=== PATIENT | male | born 1945 | race Caucasian/White ===

== ENCOUNTER 2019-08-16 11:09 | Inpatient (IN) | payer MEDICARE, OTHER, SELFPAY ==
[2019-08-12 09:29] VITALS: BMI 25.7
[2019-08-16] VITALS (21 sets, daily range): BP systolic 83–140; BP diastolic 51–76; PULSE 68–105; RESP 10–20; TEMP 36–37.1; O2SAT 91–100; BMI 25.4
--- NOTE | 2019-08-16 | PATH_ITS ---
[facility] Accession Number: [id number] . 01 Material submitted: . PART A: lymph node - RIGHT PELVIC LYMPH NODES PART B: lymph node - LEFT PELVIC LYMPH NODES PART C: prostate - PROSTATE . 01 Clinical history: . C: (SUTURE PLACED ANTERIOR REAPPROXIMATING MARGIN) . 02 Diagnosis: A. Right Pelvic Lymph Nodes, Excision: Four lymph nodes negative for carcinoma. . B. Left Pelvic Lymph Nodes, Excision: Two lymph nodes negative for carcinoma. . C. Prostate, Radical Prostatectomy: Prostatic adenocarcinoma; see Cancer Case Summary. . Surgical Pathology Cancer Case Summary-Prostate Gland. Procedure: Radical prostatectomy. Prostate Size: Weight: 44 grams. Size: 5.2 x 5.0 x 3.5 cm. Histologic Type: Acinar adenocarcinoma. Histologic Grade: Grade Group 5 (Melinda score 4+5=9). Percentage of Melinda Patterns 4 and 5. Percentage of pattern 4: 60% Percentage of pattern 5: 20% Intraductal Carcinoma: Not identified. Tumor Quantitation: Estimated percentage of prostate involved by tumor: 10%. Extraprostatic Extension: Not identified. Urinary Bladder Neck Invasion: Not identified. Seminal Vesical Invasion: Not identified. Lymphovascular Invasion: Not identified. Perineural Invasion: Present. Margins: Uninvolved by invasive carcinoma. Treatment Effect: No known presurgical therapy. Regional Lymph Nodes: Number of lymph nodes involved: 0. Number of lymph nodes examined: 6. Pathologic Stage Classification (pTNM, AJCC 8th Edition): Primary Tumor: pT2. Regional Lymph Nodes: pN0. Additional Pathologic Findings: High-grade prostatic intraepithelial neoplasia (PIN). V 08/23/2019 1346 Local . 02 Electronically signed: . Andrei Oropeza MD, PhD, Pathologist NPI- [id number] . 01 Gross description: . (A) Received in formalin, labeled right pelvic lymph node, is a piece of garcia-yellow rubbery adipose tissue (4.5 x 2.0 x 0.7 cm) containing an apparent cluster of lymph nodes (3.7 x 1.7 x 0.5 cm in aggregate, ranging 0.4 x 0.4 x 0.4 cm - 2.0 x 0.6 x 0.3 cm). Section code: (A1-A3) one bisected lymph node in each; (A4-A5) one serially sectioned lymph node; (A6) remaining adipose tissue. Specimen is entirely submitted. (B) Received in formalin, labeled left pelvic lymph nodes, is a piece of garcia-yellow rubbery adipose tissue (4.8 x 1.8 x 0.7 cm) containing an apparent cluster of lymph nodes (4.7 x 1.5 x 0.4 cm in aggregate, ranging 1.2 x 0.4 x 0.2 cm - 4.0 x 1.0 x 0.4 cm). Section code: (B1) one bisected lymph node; (B2-B3) one serially sectioned lymph node; (B4) remaining adipose tissue. Specimen entirely submitted. (C) Received in formalin, labeled prostate, suture placed anterior reapproximating the margins, is a prostate gland (44 grams, 3.5 cm AP, 5.2 cm SI, 5.0 cm ML) with attached seminal vesicles (right: 3.5 x 1.7 x 0.3 cm; left: 2.9 x 1.2 x 0.5 cm). Two sutures indicate the anterior approximate margin. The exterior surface is irregular with diffuse adhesions. The parenchyma is garcia-jimenes focally pale and cystic. No definitive nodules, masses, or lesions are identified. Seminal vesicles are spongy and unremarkable. The specimen is serially sectioned into eight slices proximal to distal. Ink code: orange-right anterior; blue-left anterior; black-right posterior; purple-left posterior. Section code: (C1-C2) base margin, perpendicularly sectioned, entirely submitted; (C3-C4) seminal vesicle and base junction; (C5-C8) slice #2, entirely submitted; (C9-C12) slice #5, entirely submitted; (C13-C16) slice #7, entirely submitted; (C17) right seminal vesicle, technical service representative serial section; (C18) left seminal vesicle, technical service representative serial section; (C19-C20) apical margin, perpendicularly sectioned, entirely submitted. Additional sections: (C21-C23) slice #6, entirely submitted; (C24-C26) slice #8, entirely submitted. ([id number])([id number]) /[facility] 08/20/2019 0953 Local . 02 Pathologist provided ICD-10: C61 . 02 CPT . 632918, 280244, 418730 Performed at: 01 [facility] [address] [id number] MD Almas Gallardo MD Phone: [phone] Performed at: 02 [facility] [address] [place] [id number] MD Zonia Alvarado MD Phone: [phone]
[2019-08-16] MEDS: GABAPENTIN 300 MG CAPSULE PO (12:02)
[2019-08-16] MEDS: LACTATED RINGERS 1,000 ML 42 ML IV ×5 (12:15→18:00)
[2019-08-16 12:19] LABS: Blood Urea Nitrogen 15 mg/dL (9-20); Calcium 9.5 mg/dL (8.4-10.2); Carbon Dioxide 25 mmol/L (22-32); Chloride 107 mmol/L (98-107); Estimated Glomerular Filt Rate > 60.0 mL/min (>60); Glucose 109 mg/dL (80-110); HEMOLYSIS < 15 (0-50); Potassium 4.1 mmol/L (3.4-5.1); Sodium 141 mmol/L (137-145)
--- NOTE | 2019-08-16 13:09 | PM.PREOP ---
Pre-operative Note Interval Note History & Physical reviewed/Exam performed by Physician: Yes Changes to H&P: No H&P completed within 30 days and has changed as indicated here:: History and physical examination on file is unchanged after review.
[2019-08-16 13:24] LABS: Hematocrit 37.8 % (41-53); Hemoglobin 13.3 g/dL (13.5-17.5)
[2019-08-16] MEDS: CEFAZOLIN 2 GM/100 ML FROZ.PIGGY IV (13:24)
--- NOTE | 2019-08-16 14:21 | SUR.OPER ---
Supine on padded OR bed, head on pillow, arms secured on padded arm boards at <90 degrees abduction, legs uncrossed, safety belt at thigh, pillow under knees/thighs, gel pad under heels.
[2019-08-16] MEDS: ACETAMINOPHEN IV 1,000 MG/100 ML VIAL 400 MG IV (14:30)
--- NOTE | 2019-08-16 15:10 | SUR.OPER ---
delay due to late MD and pre-op labs not being drawn
[2019-08-16] MEDS: ALBUMIN HUMAN 25 GM/100 ML VIAL IV ×2 (15:45→17:32)
[2019-08-16] MEDS: BUPIVACAINE LIPOSOME 266 MG/20 ML VIAL INJ (17:31)
--- NOTE | 2019-08-16 17:54 | P.OP_ITS ---
Operative Date/Time/Diagnoses Date of procedure: 08/16/19 Time of procedure: 17:54 Pre-op diagnosis: Grade group 5 adenocarcinoma of the prostate Post-op diagnosis: same Procedure & Clinicians Same procedure as scheduled: Yes
--- NOTE | 2019-08-16 17:54 | PM.OP.1 ---
Operative Date/Time/Diagnoses Date of procedure: 08/16/19 Time of procedure: 17:54 Pre-op diagnosis: Grade group 5 adenocarcinoma of the prostate Post-op diagnosis: same Procedure & Clinicians Same procedure as scheduled: Yes
--- NOTE | 2019-08-16 17:55 | P.OP_ITS ---
Operative Date/Time/Diagnoses Date of procedure: 08/16/19 Time of procedure: 17:55 Post-op diagnosis: same Procedure & Clinicians Procedure: Radical retropubic prostatectomy and bilateral pelvic lymphadenectomy Same procedure as scheduled: Yes Indications: [place] group 5 adenocarcinoma the prostate Surgeon: Caty Giang Brand Manager: Tatiana Benedict Click Yes if Unassisted: No Anesthesia Type: General, Spinal and Local Operative Notes Findings: 1. There was extensive fibrosis and adhesions of the midline lower abdominal wall. 2. There was extensive yeison prostatic fibrosis and adhesions to the empty interior abdominal wall, posterior pubic symphysis and rectal wall. 3. Bilateral pelvic lymph nodes were palpably and visibly benign. 4. The consistency of the prostate was firm to indurated but no visible evidence of obvious extra prostatic extension. Closure Type: primary Specimen(s): other (1. Bilateral pelvic lymph nodes. 2. Prostate and attached seminal vesicles. ) Applied: catheter (# 22 Surinamese silicone catheter) Estimated Blood Loss (mL): 800 Blood products transfused: none Tourniquet time (min): 0 Procedure in detail: The patient was positioned in supine and administered general anesthesia of following successful placement of Duramorph spinal anesthetic. The lower abdomen genitalia and groin were then prepped and draped in sterile fashion. A 22 Surinamese Gonzalez catheter was then inserted and the lower urinary tract. A midline infraumbilical incision was then performed that included the pre-existing wide midline scar. It was excised at the cutaneous level with cautery and sharp dissection. Continued meticulous sharp wound cautery and blunt dissection were undertaken to divide the mid midline abdominal wall structures. The space of Retzius was then entered and careful blunt dissection was performed to expose the lateral pelvic sidewalls. The external iliac vein was identified on the right side in the overlying adventitia to the connective tissue was carefully divided using blunt and cautery technique the liudmila packet was then swept from the lateral pelvic sidewall using blunt dissection. The obturator nerve and vasculature were identified and isolated and preserved. The lymph node packet was then dissected free and divided using the cautery technique from the anterolateral pelvic sidewall and then proximally at the bifurcation of the iliac veins. The specimen was then labeled right side and handed off label to to the side side of procurement. The same steps maneuvers were performed on the left side and. The prostate and bladder neck interface were then identified and careful blunt and cautery dissection were then used to enter the bladder at this point continued same technique dissection was carried out laterally around the bladder neck. Finally the posterior bladder neck was from the prostatic base and the space was entered in which the seminal vesicles and bilateral vas were identified and. Using meticulous and painstaking blunt and sharp dissection with application of metallic surgical clips where indicated for hemostasis these structures were eventually mobilized. The lateral pedicles were partially mobilized and divided using the same technique the dense adhesions against the pubic symphysis were then addressed and day using again blunt sharp cautery technique is indicated or performed a painstaking matter finally an appropriate plane was developed in the urethra was identified and isolated and secured with the large Jewel clamp the remainder of the pedicle was then divided on each side by sequentially in some cases dividing it with the ligature device and some cases using doubly applied metallic clips finally the adhesions of the rectal wall were carefully identified and addressed and again a painstaking matter appropriate plane was carefully followed. Final inspection of the rectal wall revealed no evidence of undue bleeding or stool the pelvis was then filled with water and observed for approximately 5 minutes there were no and manipulation of the rectum revealed no evidence of gas bubbles. The fluid was then drained completely. Now the bladder neck was repaired in a tennis racquet fashion using a running 2 0 Vicryl the surrounding mucosa was then effaced using a Lembert technique with 4 0 chromic. A Jose Maria sound was then positioned in the urethra so as to visualize the membranous portion. Two 0 Vicryl sutures were placed at 2:00 a.m. 4:00 a.m. 8:00 a.m. and 10:00 a.m. through the urethral stump. The same suture were then brought through the corresponding locations at the neobladder neck. The [place] Maria sound was then removed and a 22 Surinamese silicone catheter was advanced into the lower urinary tract and then the tip advanced into the bladder through the alec bladder neck under direct visualization the balloon was then inflated to 15 cc gentle traction was then applied to reapproximate the bladder neck and urethral stump anastomotic sutures were then tied down individually. The bladder was then irrigated clear. A 15 Surinamese Alden drain was then brought through separate stab incision to the right of the midline incision. Next the drain was sutured to the skin. The midline rectus fascia was closed using running 0 PDS the subcutaneous layer was then reapproximated using a running 3 0 Vicryl finally the skin was reapproximated using a running subcuticular of 4 0 Monocryl. Thin strips of Telfa were applied to the midline incision and a sq to the drain site op site was then applied to the midline incision and the drain site for Bioclusive closure closure dressing the Gonzalez was attached to gravity drainage. The Alden drain was attached to a bulb self suction. The patient was then transferred to a rflorence and transported to recovery in stable condition. Complications: none Post-operative Condition: stable Disposition: PACU Plan for aftercare: Admission as inpatient.
[2019-08-16 18:49] LABS: Hematocrit 20.4 % (41-53)
--- NOTE | 2019-08-16 19:03 | SUR.PHASEI ---
HCT 20.4. Dr. Kingston notified, orders pending. VS stable.
--- NOTE | 2019-08-16 19:12 | SUR.PHASEI ---
Report for [facility]
--- NOTE | 2019-08-16 20:22 | SUR.PHASEI ---
1914 patient transferred to the floor with jacket and belongings bag. VS stable. IV saline locked. Report given to Corinna. Scant amt of pink drainage to abd dressing. Alden drain and walters patent.
[2019-08-17] VITALS (14 sets, daily range): BP systolic 98–137; BP diastolic 51–63; PULSE 67–105; RESP 16–17; TEMP 36.4–37.9; O2SAT 95–100
--- NOTE | 2019-08-17 01:03 | PC.NURSE ---
1st unit of PRBC's transfused, without any S&S of transfusion reactions. 2nd unit started @ 0015 infusing @ 75 cc. After 15 mins.VSS Blood pressure 131/61 HR. 97 , RR 16 & Temp. 98.2. Denies any S&S of any reactions; PICKETT, pruritus, nausea & other symptoms, increased transfusion rate to 135 cc/hour. Will monitor.
--- NOTE | 2019-08-17 02:46 | PC.NURSE ---
Notified Dr. Kingston to verify if she want to transfuse 2 units of PRBC's or 4 units. She ordered to transfuse 2 units & draw H&H after second unit & call her with the results. Will monitor.
[2019-08-17] MEDS: LACTATED RINGERS 1,000 ML 120 ML IV (03:23)
[2019-08-17 03:59] LABS: Hemoglobin 9.2 g/dL (13.5-17.5)
[2019-08-17 04:00] LABS: Hematocrit 26.6 % (41-53)
--- NOTE | 2019-08-17 04:12 | PC.NURSE ---
DR. Kingston notified with the latest H&H results of 9.2 & 26.6 last VS BP 108/58, HR, 76, RR [address] Temp.99.2. Dr. Kingston ordered not to transfuse the 3rd unit & PRBC's & She states Dr. Giang will assess him in the morning. Will cont. POC & monitor.
[2019-08-17] MEDS: KETOROLAC 10 MG TABLET PO ×2 (05:26→22:12)
--- NOTE | 2019-08-17 07:42 | PM.PN.1 ---
Subjective Subjective Date Patient Seen: 08/17/19 Time Patient Seen: 07:43 Interval history: The patient had a uneventful night. He was transfused 2 units of packed RBCs for immediate postoperative hematocrit of 20. His vital signs remained stable. Exam Vital Signs (past 8 hours): - 08/17/19 00:00 08/17/19 00:23 08/17/19 00:29 Temperature 98.3 F 98.3 F 98.2 F Pulse Rate 95 H 95 H 97 H Respiratory Rate 16 16 16 Blood Pressure 98/51 L 98/51 L 137/61 Pulse Oximetry 98 08/17/19 03:02 08/17/19 03:10 08/17/19 03:15 Temperature 99.2 F 99.2 F Pulse Rate 76 76 Respiratory Rate 16 16 Blood Pressure 108/58 L 108/58 L Pulse Oximetry 97 97 Oxygen Delivery Method Room Air Oxygen Flow Rate 0 Narrative Exam Narrative: The patient is is sitting nearly upright in bed his color is excellent news in no acute distress and reports no complaints other than minor incisional discomfort. Chest equal clear and unlabored bilaterally. Abdomen is soft bowel sounds are palpably active. Dressings are intact. Darrick-Monson output is serosanguineous. Extremities are warm no pallor or cyanosis. Objective Labs Result Diagrams: 08/17/19 03:50 08/16/19 11:59 Labs: Laboratory Results - last 24 hr 08/16/19 08/16/19 08/16/19 11:59 13:10 18:16 Hgb 13.3 L Hct 37.8 L 20.4 L* Sodium 141 Potassium 4.1 Chloride 107 Carbon Dioxide 25 BUN 15 Creatinine 0.60 L Estimated GFR > 60.0 BUN/Creatinine Ratio 25.0 H Glucose 109 Calcium 9.5 Blood Type Antibody Screen Crossmatch 08/16/19 08/17/19 18:16 03:50 Hgb 9.2 L Hct 26.6 L Sodium Potassium Chloride Carbon Dioxide BUN Creatinine Estimated GFR BUN/Creatinine Ratio Glucose Calcium Blood Type A Positive Antibody Screen Negative Crossmatch See Detail Assessment & Plan Assessment & Plan narrative: 1. Stable postoperative day 1 status post radical retropubic prostatectomy and bilateral pelvic lymphadenectomy. 1. Ambulate with assistance q.i.d.. 2. Up in chair as much as tolerated. 3. Saline lock IV and advanced diet to General as tolerated. 4. Pathology pending.
--- NOTE | 2019-08-17 08:52 | CM.DANOTE ---
DCP: Case received, EMR reviewed and met with patient. , Deja, also in room. Introduced self and role. Was able to obtain some history regarding baseline activity and health information. DCP assessment completed with information currently available. Patient is a 74 year old male who admitted yesterday morning to the care of the hospitalist team. PCP: [facility] clinic. Payer: confirmed: Medicare/ for Life. Patient came to the hospital for a prostatectomy, bilateral lymphadenectomy. Patient has history of prostate cancer. Met with patient and . Patient is pleasant, alert and oriented. He is independent. Stated that he had been going to the [facility], residency program. He stated that his doctor was Dr. longoria, but she went on to [place]. Stated that they will get him a different provider in the same clinic. Stated that there are approximately 5 providers. P: DCP to continue to follow. Plan is for home when stable, and will follow up with his urologist. Naya Hussein RN/F[employer]
[2019-08-17] MEDS: ENOXAPARIN 30 MG/0.3 ML SYRINGE SUBCUT (08:54)
[2019-08-17] MEDS: SODIUM CHLORIDE 0.9% FLUSH 10 ML IV ×4 (08:54→23:42)
[2019-08-17] MEDS: ACETAMINOPHEN 325 MG TABLET 650 MG PO (08:58)
[2019-08-17] MEDS: diphenhydrAMINE 50 MG/ML VIAL 25 MG IV (23:42)
[2019-08-18] VITALS (11 sets, daily range): BP systolic 109–141; BP diastolic 53–67; PULSE 72–91; RESP 16–17; TEMP 36.9–37.6; O2SAT 92–99
[2019-08-18] MEDS: ACETAMINOPHEN 325 MG TABLET 650 MG PO ×2 (07:00→23:29)
[2019-08-18] MEDS: ENOXAPARIN 40 MG/0.4 ML SYRINGE SUBCUT (09:08)
[2019-08-18] MEDS: SODIUM CHLORIDE 0.9% FLUSH 10 ML IV ×3 (09:13→23:35)
[2019-08-18] MEDS: ONDANSETRON 4 MG/2 ML INJ IV (10:42)
[2019-08-18] MEDS: KETOROLAC 10 MG TABLET PO ×2 (11:02→21:48)
--- NOTE | 2019-08-18 13:59 | PM.PN.1 ---
Subjective Subjective Date Patient Seen: 08/18/19 Time Patient Seen: 13:59 Interval history: Interval progress note status post radical retropubic prostatectomy and bilateral pelvic node dissection August 16, 2019. He reports bowel movement and flatus in the interval he is tolerating a general diet and free intake of fluids. He is ambulating without assistance. Incisional pain is adequately managed with oral analgesics. Exam Vital Signs (past 8 hours): - 08/18/19 07:35 08/18/19 07:50 08/18/19 08:18 Temperature 99.7 F H 99.7 F H Pulse Rate 72 72 Respiratory Rate 16 16 Blood Pressure 109/54 L 109/54 L Pulse Oximetry 97 97 97 08/18/19 13:48 Temperature 98.7 F Pulse Rate 72 Respiratory Rate 16 Blood Pressure 117/53 L Pulse Oximetry 98 Oxygen Delivery Method Room Air Oxygen Flow Rate 0 Narrative Exam Narrative: He is sitting upright in bed in no distress. Chest equal clear and nonlabored bilaterally. Heart rate is regular. Abdomen is soft doughy nondistended bowel sounds are active. Incisional dressing and drain dressing intact. The bulb has serosanguineous drainage without clot. Extremities no edema pallor or cyanosis. Objective Labs Result Diagrams: 08/17/19 03:50 08/16/19 11:59 Assessment & Plan Assessment & Plan narrative: Stable postoperative day 2. Status post radical retropubic prostatectomy bilateral pelvic lymphadenectomy. 1. Discussed discharge planning with the patient and his . He has essentially met criteria she is comfortable in planned for late date discharge. 2. Catheter care and use instruction. 3. Pathology pending. 4. Patient will be discharged with catheter indwelling with plans for outpatient removal August 29 2019.
[2019-08-18] MEDS: diphenhydrAMINE 50 MG/ML VIAL 25 MG IV (23:29)
[2019-08-19 03:00] VITALS: O2SAT 96
[2019-08-19] MEDS: KETOROLAC 10 MG TABLET PO (04:17)
[2019-08-19 05:00] VITALS: BP 125/63; PULSE 72; RESP 16; TEMP 37.2; O2SAT 92
--- NOTE | 2019-08-19 06:32 | PC.NURSE ---
Pt VSS overnight. Pt reports pain at mid lower abdomen/surgical site 10/06. Gave tylenol and toradol overnight with good effect as pt had no complaints of uncontrolled pain. Pt with Gonzalez that is to stay in place post discharge. Gonzalez output is light red, more red overnight than last night per HUMAN RESOURCES OFFICE MANAGER. Pt stated his urine gets darker with activity I was a little restless in bed overnight. Will report to next shift to con't to monitor color of urine and report if increasing darkness. Alden drain intact with 10cc serosang overnight. Supportive spouse at bedside. Pt stated, everything is great here. I'm doing good.
--- NOTE | 2019-08-19 07:50 | PM.DS.1 ---
History of Present Illness History of Present Illness Chief complaint: 24869 Prostatectomy Radical Retropubic w/PLND Discharge Providers Provider Date of admission: 08/16/19 11:09 Discharge Date: 08/19/19 Consults: 08/16/19 18:12 Consult to Discharge Planning Routine Comment: Discharge provider: Caty Giang MD Summary Hospital Course Discharge Diagnosis: Grade group 5 adenocarcinoma of the prostate Hospital Course: the patient was admitted on the afternoon of 08/16/2019 and underwent radical retropubic prostatectomy and bilateral pelvic lymphadenectomy under general and Duramorph spinal anesthesia. Operative challenge was anticipated. He was provided 2 units packed RBCs for hematocrit of 20 and medially postoperative vital signs were stable and urine urine output was satisfactory however. He continued to progress well clinically. On the 1st postoperative day he was able ambulate without assistance tolerate a general diet and had return of bowel function as evidenced by several bowel movements. On the morning of 08/19/2019 he was stable for discharge. He was provided routine catheter care and use instruction. A postoperative follow-up appointment for 08/29/2019 was arranged with anticipated catheter removal on that day. He has provided routine post prostatectomy activity hygiene and driving instructions and restrictions. Prescriptions for ciprofloxacin and oxycodone were provided with review of intake instructions precautions and common side effects. Pathology was pending at discharge. Status at Discharge Cognitive/behavioral status at discharge: oriented Functional status at discharge: independent ambulation Overall status at discharge: patient is back to baseline Time Spent with Patient Time spent: Less than 30 minutes Exam Vital Signs (past 8 hours): - 08/19/19 03:00 08/19/19 05:00 Temperature 98.9 F Pulse Rate 72 Respiratory Rate 16 Blood Pressure 125/63 Pulse Oximetry 96 92 Oxygen Delivery Method Room Air Oxygen Flow Rate 0 Narrative Exam Narrative: The patient is sitting upright in bed awake alert and without distress. Abdomen is soft and scaphoid dressings are intact. Darrick-Monson drain has minimal serosanguineous outflow. Gonzalez catheter remains indwelling appropriately with light pink outflow without clot. Extremities are without pallor edema or cyanosis. Objective Labs Result Diagrams: 08/17/19 03:50 08/16/19 11:59 Discharge Plan Discharge Plan Patient Disposition: Home Discharge comment: Schedule appointment with Dr. Giang August 29, 2019. Discharge orders & Medications Prescriptions: New oxycodone 5 mg tablet 5 mg PO Q4H PRN (Reason: pain) Qty: 20 RF: 0 ciprofloxacin HCl [Cipro] 250 mg tablet 250 mg PO BID Qty: 6 RF: 0 Follow up/Referrals: Caty Giang MD [Physician] - ( schedule appointment for August 29, [address] Giang.) Diet/Activity/Treatments Diet: Diet as Tolerated and Regular Activity: 1. no lifting greater than 15 lb. 2. no driving until August 30, 2019. Cold/Heat Therapy: Catheter: 2-way Gonzalez Catheter comment: will arrange for outpatient removal in the front office help August 29, 2019. Skin/Wound/Dressing Care Report to your healthcare provider any signs of infection, such as:: chills, fever, increased pain and unusual redness Dressing: leave abdominal incision open to air. May elect to position a peripad between incision and waist band of clothing for comfort and air circulation. Visit Report/Discharge Packet Instructions: How to Care for Your Gonzalez Catheter -- Male, DI for Blood Transfusion, DI for Radical Prostatectomy, DI for Constipation, How to Prevent Falls, Restoring Sexual Function After Prostate Surgery
[2019-08-19 08:37] VITALS: BP 128/58; PULSE 63; RESP 16; TEMP 36.7; O2SAT 96
[2019-08-19] MEDS: ENOXAPARIN 40 MG/0.4 ML SYRINGE SUBCUT (09:07)
--- NOTE | 2019-08-19 11:29 | CM.DPC ---
DCP: Case received and discussed in Team Rounds. Pt has been d/c'd to home setting by urologist Dr. Giang and he will follow up with this provider in his clinic on August 28. Home today with his spouse as per prior plan.
--- NOTE | 2019-08-19 15:30 | PC.NURSE ---
Discharge: Pt feels ready to d/c home. Leg bag and lg bag teaching given. Catheter care instructions given. Pt spouse present at time of teaching and helpful. Rx given for oxycodone. Cabrera had been esent to the wrong pharmacy and office made aware and will resend the script to [facility] in [facility]. Tolerates diet w/out problems. Using nothing for pain. Reviewed d/c packet and discharge instructions with pt. UOP is still sl red with sediment, no clots seen today. Had a shower. Drain d/c intact. Incision left open to air per md request. Wound care instructions given. Questions answered. Pt d/c home via auto w/spouse.
== END 2019-08-19 14:00 | disposition home or self-care (01) | DRG 707 ==
PROVIDERS: Anesthesiology; Admitting Provider Specialist; Referring Provider Specialist; Visit Provider Specialist
PROC: 0VT00ZZ Resection of Prostate, Open Approach (ICD-10-PCS; principal; 2019-08-16 12:30)
DX: C61 Malignant neoplasm of prostate (principal); D62 Acute posthemorrhagic anemia; N40.1 Benign prostatic hyperplasia with lower urinary tract symptoms; N39.43 Post-void dribbling
CPT/HCPCS: 36415; 36430; 80048; 85014; 85018; 86850; 86900; 86901; 87086; P9016; C9290; J0131; J0690; J1100; J1200; J1650; J2274; J2405; J2704; P9041